=== PATIENT | female | born 1935 | race Caucasian/White ===

== ENCOUNTER 2016-07-01 15:19 | Inpatient (IN) | payer MEDICARE, OTHER ==
[~2016-07-01] VITALS: Ht 162.6 cm; Wt 67.8 kg
--- NOTE | ~2016-07-01 | EC ---
PATIENT:MATT GOODE DATE OF SERVICE: 07/01/16 SEX: F MEDICAL RECORD: [id number] DATE OF : 35 LOCATION:D.M2 D.213 AGE OF PATIENT: 81 ADMISSION DATE: 07/01/16 REFERRING PHYSICIAN: INTERPRETING PHYSICIAN: RICH LANG M.D. ECHOCARDIOGRAM REPORT ECHO CHARGES 4 ECHO COMPLETE CLINICAL DIAGNOSIS: ELEVATED PROTIME AND BNP ASSESS EF ECHOCARDIOGRAPHIC MEASUREMENTS (adult normal given) AC root (d.<3.7cm) 3.4 LV Septum d (<1.2 cm> 2.0 Valve Excursion 1.5 LV Septum (systole) 1.5 Left Atria (s.<4.0cm> 5.3 LVPW d(<1.2cm) 1.4 RV (d.<2.3cm) 3.5 LVPW (sytole) 1.7 LV diastole(<5.6CM) 4.6 MV E-F(>70mm/sec) LV systole 3.2 LVOT Diameter 1.3 MV exc.(>10mm) 1.3 Est.ejection fraction (50-75%) Pericardial Effusion Y DOPPLER: LVIT A 127 E 43.0 LA RVSP 22 LVOT 113 AOP1/2T Asc. Ao 164 RVOT 86 RA PA 109 AV Gradient Peak 10.73 AV Mean 5.51 AV Area 1.0 MV Gradient Peak 7.26 MV Mean 2.41 MV Area COMMENTS: Drop Shipment Clerk: Julio Cesar PARISI Nursing Assistant:Peggy Wall TAPE# PACS DATE OF SERVICE: 07/05/2016 REFERRING PHYSICIAN: Rafael Baker MD. INDICATION: Congestive heart failure. DESCRIPTION: Left ventricle demonstrates left ventricular hypertrophy. No regional wall motion abnormalities noted. Estimated ejection fraction is in the order of 60%. Mitral valve is structurally normal. There is mild regurgitation noted. Left atrium is moderately dilated. The aortic valve is trileaflet. I ECHOCARDIOGRAM REPORT [id number] MATT GOODE do not see any stenosis or regurgitation. The leaflets are thickened. Right ventricle is normal in size and function. Tricuspid valve is normal. There is trivial regurgitation noted. Right atrium is normal in size. There is a physiologic pericardial effusion noted. IMPRESSION: 1. Left ventricular hypertrophy with preserved ejection fraction 50%. 2. Mild mitral regurgitation. 3. 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 TRANSINT:[id number] Voice Confirmation ID: [id number] DOCUMENT ID: [id number] RICH LANG M.D. CC: [id number] DICTATION DATE: 07/07/16957 [place] BI DEVELOPER: 07/07/16 1118 ADM IN [facility] [address] [id number]
[2016-07-01 16:30] LABS: BASOPHILS 0.3 % (0-2); EOSINOPHILS 0.9 % (0-7); HEMATOCRIT 39.5 % (36.0-48.0); HEMOGLOBIN 12.9 g/dL (12-16); IMMATURE GRANULOCYTES 0.2 % (0-5); LYMPHOCYTES 9.7 % (15-50); MCH 31.5 pg (26.0-34.0); MCHC 32.7 g/dL (31.0-37.0); MCV 96.6 fL (80.0-100.0); MEAN PLATELET VOLUME 10.4 fL (7.4-10.4); MONOCYTES 7.2 % (2-11); NEUTROPHILS 81.7 % (40-80); PLATELET COUNT 231 10x3/uL (130-400); RBC 4.09 10x6/uL (4.00-5.40); RDW 14.4 % (11.5-14.5); WBC 12.1 10x3/uL (4.8-10.8)
[2016-07-01 16:46] LABS: ALBUMIN 3.2 g/dL (3.4-5.0); ANION GAP 13.6 mmol/L (8-16); BILIRUBIN - TOTAL 0.44 mg/dL (0.2-1.3); CALCIUM 9.1 mg/dL (8.5-10.1); CARBON DIOXIDE 26.8 mmol/L (21.0-32.0); CREATININE - SERUM 3.9 mg/dL (0.6-1.3); POTASSIUM - SERUM 4.4 mmol/L (3.5-5.1); PROTEIN - SERUM 6.8 g/dL (6.4-8.2)
[2016-07-01 16:54] LABS: APPEARANCE CLEAR (CLEAR); BILIRUBIN NEGATIVE (NEGATIVE); COLOR YELLOW (YELLOW); GLUCOSE 50 mg/dL (NEGATIVE); KETONE NEGATIVE (NEGATIVE); LEUKOCYTE ESTERASE NEGATIVE (NEGATIVE); NITRITE NEGATIVE (NEGATIVE); PROTEIN TRACE mg/dL (NEGATIVE); SPECIFIC GRAVITY 1.015 (1.005-1.020); UROBILINOGEN NORMAL (NORMAL)
[2016-07-01 16:59] LABS: BACTERIA FEW /hpf (NONE SEEN); EPITHELIAL CELLS 0-5 /hpf (0-5); RED CELLS - URINE 0-5 /hpf (0-5); WHITE CELLS - URINE 0-5 /hpf (0-5)
[2016-07-01 17:15] LABS: TROPONIN-I 0.062 ng/mL (0.000-0.060)
[2016-07-01] MEDS ORDERED: ULTRAM50 MG PO (20:22)
[2016-07-01] MEDS ORDERED: XANAX0.5 MG PO (20:24)
[2016-07-01] MEDS ORDERED: ROBAXIN500 MG PO (20:26)
[2016-07-01] MEDS ORDERED: ALTACE5 MG PO (20:27)
[2016-07-01 20:46] VITALS: BP 179/90
[2016-07-01 23:58] VITALS: BP 106/94
[2016-07-02 00:51] VITALS: BP 144/63; BMI 24.0
[2016-07-02 04:11] VITALS: BP 217/128
[2016-07-02 09:49] VITALS: BP 180/110
[2016-07-02 11:24] LABS: BASOPHILS 0.2 % (0-2); EOSINOPHILS 0.8 % (0-7); HEMATOCRIT 39.3 % (36.0-48.0); HEMOGLOBIN 12.6 g/dL (12-16); IMMATURE GRANULOCYTES 0.2 % (0-5); LYMPHOCYTES 7.2 % (15-50); MCH 30.8 pg (26.0-34.0); MCHC 32.1 g/dL (31.0-37.0); MCV 96.1 fL (80.0-100.0); MEAN PLATELET VOLUME 10.8 fL (7.4-10.4); MONOCYTES 8.5 % (2-11); NEUTROPHILS 83.1 % (40-80); PLATELET COUNT 225 10x3/uL (130-400); RBC 4.09 10x6/uL (4.00-5.40); RDW 14.3 % (11.5-14.5); WBC 10.9 10x3/uL (4.8-10.8)
[2016-07-02 12:03] LABS: CALC OSMOLALITY 288 mosm/kg (275-300); CALCIUM 8.8 mg/dL (8.5-10.1); CARBON DIOXIDE 27.5 mmol/L (21.0-32.0); CHLORIDE - SERUM 100 mmol/L (98-107); CKMB 1.8 U/L (0.0-3.6); CREATINE KINASE 64 UL (21-215); CREATININE - SERUM 4.3 mg/dL (0.6-1.3); GLUCOSE 152 mg/dL (74-106); POTASSIUM - SERUM 3.8 mmol/L (3.5-5.1); SODIUM 138 mmol/L (136-145); TROPONIN-I 0.055 ng/mL (0.000-0.060); UREA NITROGEN 41 mg/dL (7-18); eGFR NON AFRICAN AMERICAN 10 mL/min (90-120)
[2016-07-02 13:12] VITALS: BP 171/101
[2016-07-02 15:12] VITALS: Ht 162.6 cm; Wt 67.8 kg
[2016-07-02 20:00] VITALS: BP 191/99
[2016-07-03 01:32] VITALS: BP 139/97
[2016-07-03 03:21] LABS: APPEARANCE HAZY (CLEAR); BACTERIA MODERATE /hpf (NONE SEEN); BILIRUBIN NEGATIVE (NEGATIVE); COLOR YELLOW (YELLOW); EPITHELIAL CELLS 0-5 /hpf (0-5); GLUCOSE NEGATIVE (NEGATIVE); GRANULAR CAST 0-5 /lpf (NONE SEEN); HYALINE CAST OCC /lpf (NONE SEEN); KETONE NEGATIVE (NEGATIVE); LEUKOCYTE ESTERASE NEGATIVE (NEGATIVE); NITRITE NEGATIVE (NEGATIVE); PROTEIN 2+ mg/dL (NEGATIVE); RED CELLS - URINE 0-5 /hpf (0-5); SPECIFIC GRAVITY 1.015 (1.005-1.020); UROBILINOGEN NORMAL (NORMAL); WHITE CELLS - URINE 0-5 /hpf (0-5)
[2016-07-03 03:22] LABS: AMORPHOUS SEDIMENT <1+ /lpf (NONE SEEN)
[2016-07-03 04:16] VITALS: BP 188/88
[2016-07-03 06:27] LABS: BASOPHILS 0.2 % (0-2); EOSINOPHILS 0.3 % (0-7); HEMATOCRIT 39.8 % (36.0-48.0); HEMOGLOBIN 12.9 g/dL (12-16); IMMATURE GRANULOCYTES 0.3 % (0-5); LYMPHOCYTES 5.3 % (15-50); MCH 30.9 pg (26.0-34.0); MCHC 32.4 g/dL (31.0-37.0); MCV 95.2 fL (80.0-100.0); MEAN PLATELET VOLUME 10.4 fL (7.4-10.4); MONOCYTES 9.2 % (2-11); NEUTROPHILS 84.7 % (40-80); PLATELET COUNT 230 10x3/uL (130-400); RBC 4.18 10x6/uL (4.00-5.40); RDW 14.3 % (11.5-14.5); WBC 12.5 10x3/uL (4.8-10.8)
[2016-07-03 06:48] LABS: ANION GAP 16.9 mmol/L (8-16); CREATININE - SERUM 4.4 mg/dL (0.6-1.3); PHOSPHOROUS 4.1 mg/dL (2.5-4.9); POTASSIUM - SERUM 3.9 mmol/L (3.5-5.1)
[2016-07-03 06:50] LABS: INR 1.09 (0.85-1.17)
[2016-07-03 08:33] VITALS: BP 125/89
[2016-07-03 12:31] VITALS: BP 155/92
[2016-07-03 16:55] VITALS: BP 121/69
[2016-07-03 19:00] VITALS: BP 183/105
[2016-07-04] VITALS (7 sets, daily range): BP systolic 125–172; BP diastolic 76–103
[2016-07-04 06:52] LABS: BASOPHILS 0.2 % (0-2); EOSINOPHILS 1.7 % (0-7); HEMATOCRIT 37.4 % (36.0-48.0); HEMOGLOBIN 12.1 g/dL (12-16); IMMATURE GRANULOCYTES 0.2 % (0-5); LYMPHOCYTES 7.7 % (15-50); MCH 30.7 pg (26.0-34.0); MCHC 32.4 g/dL (31.0-37.0); MCV 94.9 fL (80.0-100.0); MEAN PLATELET VOLUME 10.4 fL (7.4-10.4); MONOCYTES 8.5 % (2-11); NEUTROPHILS 81.7 % (40-80); PLATELET COUNT 221 10x3/uL (130-400); RBC 3.94 10x6/uL (4.00-5.40); WBC 9.4 10x3/uL (4.8-10.8)
[2016-07-04 07:10] LABS: ANION GAP 16.1 mmol/L (8-16); CALCIUM 8.5 mg/dL (8.5-10.1); CARBON DIOXIDE 25.6 mmol/L (21.0-32.0); POTASSIUM - SERUM 3.7 mmol/L (3.5-5.1)
[2016-07-04 07:14] LABS: PHOSPHOROUS 5.4 mg/dL (2.5-4.9)
[2016-07-05 01:51] VITALS: BP 152/75
[2016-07-05 04:36] LABS: BASOPHILS 0.3 % (0-2); EOSINOPHILS 3.2 % (0-7); HEMATOCRIT 36.2 % (36.0-48.0); IMMATURE GRANULOCYTES 0.2 % (0-5); LYMPHOCYTES 12.5 % (15-50); MCH 31.1 pg (26.0-34.0); MCHC 33.1 g/dL (31.0-37.0); MCV 93.8 fL (80.0-100.0); MEAN PLATELET VOLUME 10.6 fL (7.4-10.4); MONOCYTES 10.5 % (2-11); NEUTROPHILS 73.3 % (40-80); RBC 3.86 10x6/uL (4.00-5.40); RDW 14.1 % (11.5-14.5); WBC 10.1 10x3/uL (4.8-10.8)
[2016-07-05 04:37] LABS: PLATELET COUNT 272 10x3/uL (130-400)
[2016-07-05 04:48] LABS: ANION GAP 17.7 mmol/L (8-16); CALCIUM 8.4 mg/dL (8.5-10.1); CARBON DIOXIDE 23.4 mmol/L (21.0-32.0); CREATININE - SERUM 5.7 mg/dL (0.6-1.3); PHOSPHOROUS 6.1 mg/dL (2.5-4.9); POTASSIUM - SERUM 4.1 mmol/L (3.5-5.1)
[2016-07-05 05:13] VITALS: BP 139/77
[2016-07-05 08:00] VITALS: BP 139/65
[2016-07-05 12:00] VITALS: BP 148/80
[2016-07-05 16:45] VITALS: BP 151/76
[2016-07-05 18:59] LABS: CREATININE - URINE 79.8 mg/dL (30-125)
[2016-07-05 19:05] LABS: APPEARANCE HAZY (CLEAR); BILIRUBIN NEGATIVE (NEGATIVE); COLOR YELLOW (YELLOW); GLUCOSE 50 mg/dL (NEGATIVE); KETONE NEGATIVE (NEGATIVE); LEUKOCYTE ESTERASE NEGATIVE (NEGATIVE); NITRITE NEGATIVE (NEGATIVE); PROTEIN 2+ mg/dL (NEGATIVE); SPECIFIC GRAVITY 1.015 (1.005-1.020); UROBILINOGEN NORMAL (NORMAL)
[2016-07-05 19:08] LABS: WHITE CELLS - URINE 0-5 /hpf (0-5)
[2016-07-05 19:09] LABS: BACTERIA MANY /hpf (NONE SEEN); EPITHELIAL CELLS 0-5 /hpf (0-5); RED CELLS - URINE 0-5 /hpf (0-5)
[2016-07-05 21:22] VITALS: BP 160/79
[2016-07-06 01:14] VITALS: BP 151/64
[2016-07-06 05:11] LABS: BASOPHILS 0.2 % (0-2); EOSINOPHILS 2.5 % (0-7); HEMATOCRIT 36.3 % (36.0-48.0); IMMATURE GRANULOCYTES 0.2 % (0-5); MCH 30.8 pg (26.0-34.0); MCHC 33.1 g/dL (31.0-37.0); MCV 93.3 fL (80.0-100.0); MEAN PLATELET VOLUME 10.3 fL (7.4-10.4); MONOCYTES 9.4 % (2-11); NEUTROPHILS 77.7 % (40-80); PLATELET COUNT 269 10x3/uL (130-400); RBC 3.89 10x6/uL (4.00-5.40); WBC 8.8 10x3/uL (4.8-10.8)
[2016-07-06 05:31] LABS: ANION GAP 14.6 mmol/L (8-16); CALCIUM 8.8 mg/dL (8.5-10.1); CARBON DIOXIDE 24.4 mmol/L (21.0-32.0); CREATININE - SERUM 6.4 mg/dL (0.6-1.3); PHOSPHOROUS 5.8 mg/dL (2.5-4.9)
[2016-07-06 06:06] VITALS: BP 158/98
[2016-07-06 08:54] VITALS: BP 151/77
[2016-07-06 12:20] VITALS: BP 155/89
[2016-07-06 17:16] VITALS: BP 152/81
[2016-07-06 20:00] VITALS: BP 170/94
[2016-07-07] VITALS: BP 164/99
[2016-07-07 04:00] VITALS: BP 150/65
[2016-07-07 05:27] LABS: BASOPHILS 0 % (0-2); EOSINOPHILS 0 % (0-7); HEMATOCRIT 36.9 % (36.0-48.0); HEMOGLOBIN 12.2 g/dL (12-16); IMMATURE GRANULOCYTES 0.4 % (0-5); LYMPHOCYTES 4.5 % (15-50); MCH 30.7 pg (26.0-34.0); MCHC 33.1 g/dL (31.0-37.0); MCV 92.7 fL (80.0-100.0); MEAN PLATELET VOLUME 10.2 fL (7.4-10.4); MONOCYTES 2.6 % (2-11); NEUTROPHILS 92.5 % (40-80); RBC 3.98 10x6/uL (4.00-5.40); RDW 13.8 % (11.5-14.5)
[2016-07-07 05:33] LABS: PLATELET COUNT 328 10x3/uL (130-400)
[2016-07-07 05:49] LABS: ANION GAP 17.8 mmol/L (8-16); CALCIUM 8.9 mg/dL (8.5-10.1); CARBON DIOXIDE 22.5 mmol/L (21.0-32.0); CREATININE - SERUM 6.5 mg/dL (0.6-1.3); PHOSPHOROUS 6.5 mg/dL (2.5-4.9); POTASSIUM - SERUM 4.3 mmol/L (3.5-5.1)
[2016-07-07 08:38] VITALS: BP 176/84
[2016-07-07 12:24] VITALS: BP 177/89
[2016-07-07 16:11] VITALS: BP 168/79
[2016-07-07 20:00] VITALS: BP 154/89
[2016-07-08] VITALS (7 sets, daily range): BP systolic 138–173; BP diastolic 76–90
[2016-07-08 05:24] LABS: BASOPHILS 0 % (0-2); EOSINOPHILS 0 % (0-7); HEMATOCRIT 32.5 % (36.0-48.0); HEMOGLOBIN 10.7 g/dL (12-16); IMMATURE GRANULOCYTES 0.5 % (0-5); LYMPHOCYTES 3.5 % (15-50); MCH 30.4 pg (26.0-34.0); MCHC 32.9 g/dL (31.0-37.0); MCV 92.3 fL (80.0-100.0); MONOCYTES 6.6 % (2-11); NEUTROPHILS 89.4 % (40-80); PLATELET COUNT 356 10x3/uL (130-400); RBC 3.52 10x6/uL (4.00-5.40); RDW 14.1 % (11.5-14.5)
[2016-07-08 05:45] LABS: WBC 11.1 10x3/uL (4.8-10.8)
[2016-07-08 05:57] LABS: ANION GAP 16.9 mmol/L (8-16); CARBON DIOXIDE 23.6 mmol/L (21.0-32.0); CREATININE - SERUM 6.9 mg/dL (0.6-1.3); POTASSIUM - SERUM 4.5 mmol/L (3.5-5.1)
[2016-07-08 12:15] LABS: APPEARANCE HAZY (CLEAR); BILIRUBIN NEGATIVE (NEGATIVE); COLOR YELLOW (YELLOW); GLUCOSE 50 mg/dL (NEGATIVE); KETONE NEGATIVE (NEGATIVE); LEUKOCYTE ESTERASE NEGATIVE (NEGATIVE); NITRITE NEGATIVE (NEGATIVE); PROTEIN 1+ mg/dL (NEGATIVE); UROBILINOGEN NORMAL (NORMAL); WHITE CELLS - URINE 0-5 /hpf (0-5)
[2016-07-08 12:16] LABS: BACTERIA FEW /hpf (NONE SEEN); RED CELLS - URINE 0-5 /hpf (0-5)
[2016-07-08 12:17] LABS: AMORPHOUS SEDIMENT <1+ /lpf (NONE SEEN); GRANULAR CAST OCC /lpf (NONE SEEN); HYALINE CAST OCC /lpf (NONE SEEN); MUCUS <1+ /lpf (NONE SEEN)
[2016-07-09 04:05] VITALS: BP 158/92
[2016-07-09 05:47] LABS: BASOPHILS 0.1 % (0-2); EOSINOPHILS 0.7 % (0-7); HEMATOCRIT 34.3 % (36.0-48.0); HEMOGLOBIN 11.3 g/dL (12-16); IMMATURE GRANULOCYTES 1.1 % (0-5); LYMPHOCYTES 11.8 % (15-50); MCH 30.9 pg (26.0-34.0); MCHC 32.9 g/dL (31.0-37.0); MCV 93.7 fL (80.0-100.0); MONOCYTES 12.2 % (2-11); NEUTROPHILS 74.1 % (40-80); PLATELET COUNT 375 10x3/uL (130-400); RBC 3.66 10x6/uL (4.00-5.40); RDW 14.1 % (11.5-14.5); WBC 10.5 10x3/uL (4.8-10.8)
[2016-07-09 06:00] LABS: ANION GAP 19.2 mmol/L (8-16); CALCIUM 8.5 mg/dL (8.5-10.1); CARBON DIOXIDE 19.7 mmol/L (21.0-32.0); CREATININE - SERUM 6.4 mg/dL (0.6-1.3); INR 1.05 (0.85-1.17); POTASSIUM - SERUM 4.9 mmol/L (3.5-5.1); PROTIME 13.5 SECONDS (11.6-15.0)
[2016-07-09 06:54] LABS: % SATURATION 39 % (15-55); IRON 70 ug/dl (35-150); TOTAL IRON BIND CAPACITY 177 ug/dl (260-445); UNSAT IRON BIND CAPACITY 107 ug/dl (150-375)
[2016-07-09 08:16] VITALS: BP 183/106
[2016-07-09 11:51] VITALS: BP 134/54
[2016-07-09] MEDS ORDERED: ULTRAM50 MG PO (14:07)
== END 2016-07-09 16:29 | disposition home health service (06) | DRG 291 ==
LOC: D.ER 15:19 → D.M2 18:43
PROVIDERS: Emergency Medicine; ADMIT Internal Medicine Nephrology
DX: I13.2 Hypertensive heart and chronic kidney disease with heart failure and with stage 5 chronic kidney disease, or end stage renal disease (principal); J18.9 Pneumonia, unspecified organism; N18.5 Chronic kidney disease, stage 5; J44.0 Chronic obstructive pulmonary disease with (acute) lower respiratory infection; N39.0 Urinary tract infection, site not specified; E87.1 Hypo-osmolality and hyponatremia; I50.9 Heart failure, unspecified; I73.9 Peripheral vascular disease, unspecified; Z66 Do not resuscitate